=== PATIENT | female | born 1970 | race African-American/Black ===

== ENCOUNTER → 2016-10-13 | Outpatient (CLI) | payer MEDICARE ==
[2014-06-25 13:38] VITALS: BP 146/52
[~2016-10-13] MED LIST: ACET650T26 PO; CLON2TAB PO; DIPH25CA58 PO; ESOM20CA PO; GLIP5TAB10 PO; HYDR1TAB12 PO; HYDR50TA6 PO; INSU100V SQ; LEVO250T25 PO; METF10002 PO; METO100T5 PO; ONDA8TAB12 PO; SIMV10TA PO
--- NOTE | 2016-10-13 09:58 | RAD ---
Chest, 2 views, 10/13/2016: History: Dyspnea for one week Comparison is made to a study from 08/12/2014. The heart size and pulmonary vascularity are normal. No pulmonary infiltrates are seen. There is no evidence of pleural fluid. IMPRESSION: No acute cardiopulmonary abnormality is detected.
== END | disposition home or self-care (01) ==
LOC: DXRADRC 09:03
PROVIDERS: ATTEND Physician Assistant
DX: R06.00 Dyspnea, unspecified (principal)
CPT/HCPCS: 71020

== ENCOUNTER → 2016-10-19 | Outpatient (CLI) | payer MEDICARE ==
[2014-06-25 13:38] VITALS: BP 146/52
--- NOTE | 2016-10-19 14:03 | RAD ---
Renal ultrasound, 10/19/2016: History: Chronic kidney disease The right kidney measures 10.1 cm in length while the left kidney measures 10.5 cm. Two small cysts are present in the left kidney. The largest of these lies in the lower pole and measures 2 cm. The renal parenchymal echogenicity is otherwise within normal limits. There is minimal bilateral renal cortical scarring. There is no evidence of hydronephrosis. The bladder is is not well distended and poorly defined. IMPRESSION: 1. Mild bilateral renal cortical scarring. 2. Small left renal cyst. 3. No evidence of renal obstruction.
== END | disposition home or self-care (01) ==
LOC: US 13:05
PROVIDERS: ATTEND Internal Medicine Nephrology
DX: N18.4 Chronic kidney disease, stage 4 (severe) (principal); N28.89 Other specified disorders of kidney and ureter
CPT/HCPCS: 76770

== ENCOUNTER → 2018-03-06 | Outpatient (CLI) | payer MEDICARE ==
[2014-06-25 13:38] VITALS: BP 146/52
[~2018-03-06] MED LIST changes: -METF10002 PO; +METF10003 PO
--- NOTE | 2018-03-07 09:17 | RAD ---
Bone densitometry scan, 03/06/2018: History: Ovarian failure, osteoporosis screening The lumbar spine and right hip were examined utilizing a DEXA technique. The bone mineral density in the lumbar spine as measured from the L1-L4 levels is 1.56 g/sq cm. This yields a T score of 3.2 which is in the normal range. The total T score at the right hip is 0.2 which is also in the normal range. IMPRESSION: Normal bone mineral density measurements.
== END | disposition home or self-care (01) ==
LOC: DXRAD 09:44
PROVIDERS: ATTEND Physician Assistant
DX: Z13.820 Encounter for screening for osteoporosis (principal); I12.9 Hypertensive chronic kidney disease with stage 1 through stage 4 chronic kidney disease, or unspecified chronic kidney disease; E11.22 Type 2 diabetes mellitus with diabetic chronic kidney disease; N18.4 Chronic kidney disease, stage 4 (severe); E55.9 Vitamin D deficiency, unspecified; Z86.73 Personal history of transient ischemic attack (TIA), and cerebral infarction without residual deficits; Z86.2 Personal history of diseases of the blood and blood-forming organs and certain disorders involving the immune mechanism
CPT/HCPCS: 77080

== ENCOUNTER → 2018-03-06 | Outpatient (CLI) | payer MEDICARE ==
[2014-06-25 13:38] VITALS: BP 146/52
--- NOTE | 2018-03-06 10:38 | RAD ---
Pelvis with right hip, 3 views, 03/06/2018: HISTORY: Hip pain No fracture or dislocation is identified. The hip joints are fairly well-maintained with only minimal marginal spurring. Extensive arterial calcifications are present. IMPRESSION: 1. Mild spurring at both hip joints. 2. No acute bony abnormality is detected. Electronically signed by: Tony Harris MD (03/06/2018 10:34 AM) [facility]
== END | disposition home or self-care (01) ==
LOC: DXRAD 09:47
PROVIDERS: ATTEND General Practice
DX: M76.892 Other specified enthesopathies of left lower limb, excluding foot (principal); M76.891 Other specified enthesopathies of right lower limb, excluding foot; E55.9 Vitamin D deficiency, unspecified; I12.9 Hypertensive chronic kidney disease with stage 1 through stage 4 chronic kidney disease, or unspecified chronic kidney disease; E11.22 Type 2 diabetes mellitus with diabetic chronic kidney disease; N18.4 Chronic kidney disease, stage 4 (severe); Z86.73 Personal history of transient ischemic attack (TIA), and cerebral infarction without residual deficits; Z86.2 Personal history of diseases of the blood and blood-forming organs and certain disorders involving the immune mechanism
CPT/HCPCS: 73521

== ENCOUNTER → 2018-12-06 | Outpatient (CLI) | payer MEDICARE ==
[2014-06-25 13:38] VITALS: BP 146/52
[~2018-12-06] MED LIST changes: -HYDR1TAB12 PO; +HYDR1TAB13 PO; -METF10003 PO; +METF10007 PO
--- NOTE | 2018-12-06 17:01 | RAD ---
EXAM: Chest, 2 views. HISTORY: Productive cough. COMPARISON: 03/06/2018 FINDINGS: 2 views of the chest are obtained. There is no infiltrate, pleural effusion or pneumothorax. The heart is normal in size. There is a suspected small hiatal hernia. IMPRESSION: No acute pulmonary finding. Electronically signed by: Fallon Medina MD (12/06/2018 4:58 PM) [facility]
== END | disposition home or self-care (01) ==
LOC: PMG 16:13
PROVIDERS: ATTEND Registered Nurse
DX: R05 Cough (principal)
CPT/HCPCS: 71046

== ENCOUNTER → 2019-04-04 | Outpatient (CLI) | payer MEDICARE ==
[2014-06-25 13:38] VITALS: BP 146/52
--- NOTE | 2019-04-04 18:22 | RAD ---
AP pelvis with bilateral hips HISTORY: Hip pain. COMPARISON: 03/06/2018. FINDINGS: No evidence of acute fracture. No aggressive bone destruction. Joint spaces are intact. Small pelvic calcifications are identified compatible with phleboliths. IMPRESSION: No acute radiographic findings. Electronically signed by: Brayan Shankar MD (04/04/2019 6:19 PM) [id number]
== END | disposition home or self-care (01) ==
LOC: PMG 14:32
PROVIDERS: ATTEND Physician Assistant
DX: M25.552 Pain in left hip (principal); M25.551 Pain in right hip
CPT/HCPCS: 73521

== ENCOUNTER → 2020-02-05 | Outpatient (CLI) | payer MEDICARE, OTHER ==
[2014-06-25 13:38] VITALS: BP 146/52
--- NOTE | 2020-02-18 11:33 | RAD ---
EXAM: Nuclear gastric emptying scan. HISTORY: Nausea and vomiting. Reflux. COMPARISON: None. TECHNIQUE: Serial static images were obtained over the stomach following oral administration of 2 mCi of 99m-Tc sulfur colloid. FINDINGS: The stomach empties into the small bowel without evidence of reflux in the area of the esophagus. The estimated time for half emptying of gastric contents, i.e. 'gastric emptying time' is 51 minutes (normal is 66 +/- 22 minutes). There is 44 percent retained tracer activity within stomach at one hour, 16 percent retained tracer activity within the stomach at 2 hours and 1 percent retained tracer activity within stomach at 3 hours. IMPRESSION: Normal gastric emptying scan. Electronically signed by: Fallon Medina MD (02/18/2020 11:30 AM) [id number]
== END | disposition home or self-care (01) ==
LOC: NM 08:21
PROVIDERS: ATTEND Internal Medicine Gastroenterology
DX: R11.2 Nausea with vomiting, unspecified (principal)
CPT/HCPCS: 78264; A9541

== ENCOUNTER 2020-02-09 14:47 | Emergency (ER) | payer MEDICARE, OTHER ==
[~2020-02-09] VITALS: Ht 154.9 cm; Wt 69.2 kg
[2020-02-09 14:47] VITALS: BP 152/82
--- NOTE | 2020-02-09 15:25 | PHYS DOC ---
Past History Past Medical History: Anemia, Anxiety, Diabetes, Hypertension, Renal Disease, Other Past Surgical History: No Surgical History Smoking: Non-smoker Alcohol Use: None Drug Use: None General Adult EDM: Chief Complaint: URINARY problem HPI: HPI: Patient is a 50-year-old female with stage III kidney disease, presented to ER today with scanty urination. Patient says she woke up this morning had a good urination, then about 3 hours ago when she had the urge to urinate, not much coming out. Patient has some pain with urination. Patient denies any fever, no cough, no nausea, no vomiting, no abdominal pain. Review of Systems: Review of Systems: Constitutional: Denies fever or chills Eyes: Denies change in visual acuity HENT: Denies nasal congestion or sore throat Respiratory: Denies cough or shortness of breath Cardiovascular: Denies chest pain or edema GI: Denies abdominal pain, nausea, vomiting, bloody stools or diarrhea : Positive for dysuria Musculoskeletal: Denies back pain or joint pain Integument: Denies rash Neurologic: Denies headache, focal weakness or sensory changes Endocrine: Denies polyuria or polydipsia Lymphatic: Denies swollen glands Psychiatric: Denies depression or anxiety Heart Score: Risk Factors: Risk Factors: DM, Current or recent (<one month) smoker, HTN, HLP, family history of CAD, obesity. Risk Scores: Score 0 - 3: 2.5% MACE over next 6 weeks - Discharge Home Score 4 - 6: 20.3% MACE over next 6 weeks - Admit for Clinical Observation Score 7 - 10: 72.7% MACE over next 6 weeks - Early Invasive Strategies Allergies: Allergies: Allergies Coded Allergies Type Severity Reaction Last Updated Verified metoclopramide HCl Allergy Severe Anaphylaxis 08/10/13 Yes Sulfa (Sulfonamide Antibiotics) Allergy Intermediate rash 08/10/13 Yes latex Allergy Intermediate rash 08/10/13 Yes Physical Exam: PE: Constitutional: Well developed, well nourished, no acute distress, non-toxic appearance. [] HENT: Normocephalic, atraumatic, bilateral external ears normal, oropharynx moist, no oral exudates, nose normal. [] Eyes: PERRLA, EOMI, conjunctiva normal, no discharge. [] Neck: Normal range of motion, no tenderness, supple, no stridor. [] Cardiovascular:Heart rate regular rhythm, no murmur [] Lungs & Thorax: Bilateral breath sounds clear to auscultation [] Abdomen: Bowel sounds normal, soft, no tenderness, no masses, no pulsatile masses. [] Skin: Warm, dry, no erythema, no rash. [] Back: No tenderness, no CVA tenderness. [] Extremities: No tenderness, no cyanosis, no clubbing, ROM intact, no edema. [] Neurologic: Alert and oriented X 3, normal motor function, normal sensory function, no focal deficits noted. [] Psychologic: Affect normal, judgement normal, mood normal. [] Current Patient Data: Labs: Laboratory Tests Test 02/09/20 15:00 Urine Collection Type Unknown Urine Color Yellow Urine Clarity Turbid Urine pH 5.5 Urine Specific [place] 1.020 Urine Protein 100 mg/dl Urine Glucose (UA) Neg mg/dL Urine Ketones (Stick) Neg mg/dL Urine Blood Trace Urine Nitrite Neg Urine Bilirubin Neg Urine Urobilinogen Dipstick 0.2 mg/dL Urine Leukocyte Esterase Neg Urine RBC 3-5 /HPF Urine WBC 1-4 /HPF Urine Squamous Epithelial Cells Many /LPF Urine Bacteria Mod /HPF Urine Mucus Slight /LPF EKG: EKG: [] Radiology/Procedures: Radiology/Procedures: [] Course & Med Decision Making: Course & Med Decision Making Pertinent Labs and Imaging studies reviewed. (See chart for details) Patient was able to urinate in the ER, she did not have any abdominal pain, no fever, her urine did not show any evidence of infection. Patient will be discharged home, she will need to follow-up with her family doctor for reevaluation next week. Martina Disclaimer: Martina Disclaimer: This electronic medical record was generated, in whole or in part, using a voice recognition dictation system. Departure Departure: Impression: Primary Impression: Decreased urination Disposition: HOME/RESIDENCE PRIOR TO ADM Condition: STABLE Referrals: HIRAM GARCIA (PCP) please follow up with your doctor on Monday Patient Instructions: Dysuria Justification of Admission: Justification of Admission: Justification of Admission Dx: N/A SUSANA POTTS DO Feb 09, 2020 15:25
[2020-02-09 15:49] LABS: BILIRUBIN,URINE NEG (NEG); CLARITY,URINE TURBID; COLOR,URINE YELLOW; GLUCOSE,URINE NEG (NEG); NITRITE,URINE NEG (NEG); UROBILINOGEN,URINE 0.2 mg/dL (0.2 mg/dL)
[2020-02-09 15:50] LABS: BACTERIA,URINE MOD /HPF (0-FEW); SQUAMOUS EPITHELIAL CELL,UR MANY /LPF
== END 2020-02-09 16:50 | disposition home or self-care (01) ==
LOC: ER 14:47
DX: R39.198 Other difficulties with micturition (principal); R39.15 Urgency of urination; R30.0 Dysuria; E11.22 Type 2 diabetes mellitus with diabetic chronic kidney disease; F41.9 Anxiety disorder, unspecified; I12.9 Hypertensive chronic kidney disease with stage 1 through stage 4 chronic kidney disease, or unspecified chronic kidney disease; N18.3 Chronic kidney disease, stage 3 (moderate); Z86.2 Personal history of diseases of the blood and blood-forming organs and certain disorders involving the immune mechanism; Z88.2 Allergy status to sulfonamides; Z91.040 Latex allergy status; Z88.8 Allergy status to other drugs, medicaments and biological substances
CPT/HCPCS: 81001; 99283

== ENCOUNTER 2021-04-12 13:59 | Emergency (ER) | payer MEDICARE, OTHER ==
[~2021-04-12] VITALS: Ht 154.9 cm; Wt 66.6 kg
[~2021-04-12 13:59] MED LIST changes: -HYDR50TA6 PO; +HYDR50TA9 PO
[2021-04-12 14:05] VITALS: BP 124/81
--- NOTE | 2021-04-12 14:37 | RAD ---
EXAM: Left hand and thumb, 3 views; left wrist, 3 views. HISTORY: Fall. Trauma. COMPARISON: None. FINDINGS: A frontal view of the left hand, 2 views left thumb and 3 views of left wrist are obtained. There is no fracture, dislocation or subluxation. There is a tiny ossicle or osseous excrescence at the base of the first metacarpal which is likely due to a spur. There are vascular calcifications. IMPRESSION: No acute osseous finding. Suspected tiny spur at the base of the first metacarpal. Electronically signed by: Fallon Medina MD (04/12/2021 2:35 PM) [id number]
--- NOTE | 2021-04-12 14:58 | PHYS DOC ---
Past History Past Medical History: Anemia, Anxiety, Diabetes, Hypertension, Renal Disease, UTI, Other (GENESIS PALACIOS APRN) Past Surgical History: Hysterectomy (GENESIS PALACIOS APRN) Smoking: Non-smoker Alcohol Use: None Drug Use: None (GENSEIS PALACIOS APRN) General Adult EDM: Chief Complaint: THUMB HPI: HPI: Patient is a 51-year-old female who presents with left thumb pain after she tripped and fell at work. Patient denies taking anything for pain prior to arrival. Patient has full range of motion. Radial pulses intact. (GENESIS PALACIOS APRN) Review of Systems: Review of Systems: Constitutional: Denies fever or chills Eyes: Denies change in visual acuity HENT: Denies nasal congestion or sore throat Respiratory: Denies cough or shortness of breath Cardiovascular: Denies chest pain or edema GI: Denies abdominal pain, nausea, vomiting, bloody stools or diarrhea : Denies dysuria Musculoskeletal: Right thumb and wrist pain Integument: Denies rash Neurologic: Denies headache, focal weakness or sensory changes Endocrine: Denies polyuria or polydipsia Lymphatic: Denies swollen glands Psychiatric: Denies depression or anxiety (GENESIS PALACIOS APRN) Allergies: Allergies: Allergies Coded Allergies Type Severity Reaction Last Updated Verified metoclopramide HCl Allergy Severe Anaphylaxis 08/10/13 Yes Sulfa (Sulfonamide Antibiotics) Allergy Intermediate rash 08/10/13 Yes latex Allergy Intermediate rash 08/10/13 Yes (GENESIS PALACIOS APRN) Physical Exam: PE: Constitutional: Well developed, well nourished, no acute distress, non-toxic appearance. [] HENT: Normocephalic, atraumatic, bilateral external ears normal, oropharynx moist, no oral exudates, nose normal. [] Eyes: PERRLA, EOMI, conjunctiva normal, no discharge. [] Neck: Normal range of motion, no tenderness, supple, no stridor. [] Cardiovascular:Heart rate regular rhythm, no murmur [] Lungs & Thorax: Bilateral breath sounds clear to auscultation [] Abdomen: Bowel sounds normal, soft, no tenderness, no masses, no pulsatile masses. [] Skin: Warm, dry, no erythema, no rash. [] Back: No tenderness, no CVA tenderness. [] Extremities: Right thumb tenderness, no cyanosis, no clubbing, ROM intact, no edema. [] Neurologic: Alert and oriented X 3, normal motor function, normal sensory function, no focal deficits noted. [] Psychologic: Affect normal, judgement normal, mood normal. [] (GENESIS PALACIOS APRN) Current Patient Data: Vital Signs: Vital Signs Date Time Temp Pulse Resp B/P (MAP) Pulse Ox O2 Delivery O2 Flow Rate FiO2 04/12/21 14:05 98.0 96 16 124/81 (95) 100 Room Air (GENESIS PALACIOS APRN) EKG: EKG: [] (GENESIS PALACIOS APRN) Radiology/Procedures: Radiology/Procedures: []EXAM: Left hand and thumb, 3 views; left wrist, 3 views. HISTORY: Fall. Trauma. COMPARISON: None. FINDINGS: A frontal view of the left hand, 2 views left thumb and 3 views of left wrist are obtained. There is no fracture, dislocation or subluxation. There is a tiny ossicle or osseous excrescence at the base of the first metacarpal which is likely due to a spur. There are vascular calcifications. IMPRESSION: No acute osseous finding. Suspected tiny spur at the base of the first metacarpal. Electronically signed by: Fallon Medina MD (04/12/2021 2:35 PM) [id number] (GENESIS PALACIOS APRN) Heart Score: C/O Chest Pain: No Risk Factors: Risk Factors: DM, Current or recent (<one month) smoker, HTN, HLP, family history of CAD, obesity. Risk Scores: Score 0 - 3: 2.5% MACE over next 6 weeks - Discharge Home Score 4 - 6: 20.3% MACE over next 6 weeks - Admit for Clinical Observation Score 7 - 10: 72.7% MACE over next 6 weeks - Early Invasive Strategies (GENESIS PALACIOS APRN) Course & Med Decision Making: Course & Med Decision Making Pertinent Labs and Imaging studies reviewed. (See chart for details) [] 51-year-old female presents with left thumb pain after she tripped and fell at work. Patient denies hitting her head or loss of consciousness. Patient is reporting pain 6/10. Radial pulses are intact. Range of motion intact. Patient denying needing thing for pain at this time. Wrist and hand x-ray ordered to rule out fracture. Wrist and hand x-ray are negative for fracture. Informed patient of results. Advised patient to take ibuprofen and Tylenol at home for pain. Rice instructions given (GENESIS PALACIOS APRN) Course & Med Decision Making I was the Attending physician on the above date of service of this patient. This patient was evaluated, examined, treated, and dispositioned from the emergency department by the mid-level practitioner. Although I was working at the time , no assistance was requested. Electronically signed, Nikkie Valerio DO (NIKKIE VALERIO DO) Martina Disclaimer: Martina Disclaimer: This electronic medical record was generated, in whole or in part, using a voice recognition dictation system. (GENESIS PALACIOS APRN) Departure Departure: Impression: Primary Impression: Fall Qualified Codes: W19.XXXA - Unspecified fall, initial encounter Additional Impression: Hand sprain Qualified Codes: S63.92XA - Sprain of unspecified part of left wrist and hand, initial encounter Disposition: HOME / SELF CARE / HOMELESS Condition: STABLE Referrals: HIRAM GARCIA (PCP) Patient Instructions: LETTY - Routine Care for Injuries, [id number] Additional Instructions: You were seen in the emergency room after falling at work. X-ray was performed on your wrist and hand which was negative for fracture rest, use ice to the area, elevate to help with swelling and pain. Ibuprofen and Tylenol at home for discomfort. If pain continues you may need a repeat image to rule out fracture. Please follow-up with your PCP for further management. EMERGENCY DEPARTMENT GENERAL DISCHARGE INSTRUCTIONS Thank you for coming to [facility] (ED) today and trusting us with you care. We trust that you had a positivie experience in our Emergency Department. If you wish to speak to the department management, you may call the director at [phone]. YOUR FOLLOW UP INSTRUCTIONS ARE FOLLOWS: 1. Do you have a private Doctor? If you do not have a private doctor, please ask for a resource list of physicians or clinics that may be able to assist you with follow up care. 2. The Emergency Physician has interpreted your x-rays. The X-Ray specialist will also review them. If there is a change in the findings, you will be notified in 48 hours when at all possible. 3. A lab test or culture has been done, your results will be reviewed and you will be notified if you need a change in treatment. ADDITIONAL INSTRUCTIONS AND INFORMATION: 1. Your care today has been supervised by a physician who is specially trained in emergency care. Many problems require more than one evaluation for a complete diagnosis and treatment. We recommend that you schedule your follow up appointment as recommended to ensure complete treatment of you illness or injury. If you are unable to obtain follow up care and continue to have a problem, or if your condition worsens, we recommend that you return to the ED. 2. We are not able to safely determine your condition over the phone nor are we able to give sound medical advice over the phone. For these safety reasons, if you call for medical advice we will ask you to come to the ED for further evaluation. 3. If you have any questions regarding these discharge instructions please call the ED at [phone]. SAFETY INFORMATION: In the interest of safety, wellness, and injury prevention; we encourage you to wear your sealbelt, if you smoke; quite smoking, and we encourage family to use a protective helmet for bicycling and other sporting events that present an increased risk for head injury. IF YOUR SYMPTOMS WORSEN OR NEW SYMPTOMS DEVELOP, OR YOU HAVE CONCERNS ABOUT YOUR CONDITION; OR IF YOUR CONDITION WORSENS WHILE YOU ARE WAITING FOR YOUR FOLLOW UP APPOINTMENT; EITHER CONTACT YOUR PRIMARY CARE DOCTOR, THE PHYSICIAN WHOSE NAME AND NUMBER YOU WERE GIVEN, OR RETURN TO THE ED IMMEDIATELY. GENESIS PALACIOS APRN Apr 12, 2021 14:58 NIKKIE VALERIO DO Apr 13, 2021 06:26
== END 2021-04-12 15:16 | disposition home or self-care (01) ==
LOC: ER 13:59
DX: S63.92XA Sprain of unspecified part of left wrist and hand, initial encounter (principal); E11.9 Type 2 diabetes mellitus without complications; I10 Essential (primary) hypertension; Z87.440 Personal history of urinary (tract) infections; Z86.2 Personal history of diseases of the blood and blood-forming organs and certain disorders involving the immune mechanism; Z88.2 Allergy status to sulfonamides; Z91.040 Latex allergy status; Z88.8 Allergy status to other drugs, medicaments and biological substances; W01.0XXA Fall on same level from slipping, tripping and stumbling without subsequent striking against object, initial encounter; Y93.89 Activity, other specified; Y92.89 Other specified places as the place of occurrence of the external cause; Y99.8 Other external cause status
CPT/HCPCS: 73110; 73140; 99284

== ENCOUNTER → 2021-06-08 | Outpatient (CLI) | payer MEDICARE, OTHER ==
[~2021-06-08] MED LIST changes: +TRAM50TA PO
--- NOTE | 2021-06-08 11:32 | RAD ---
EXAM: 3 views of the left foot DATE: 06/08/2021 10:37 AM INDICATION: Reason: LEFT PLANTAR FOOT PAIN / Spl. Instructions: / History: COMPARISON: No Prior FINDINGS: No acute fracture or dislocation. Joint spaces are preserved without significant degenerative/prolife rative change. No significant soft tissue swelling. Atherosclerotic vascular calcifications are seen. Small plantar Calcaneal enthesophyte. IMPRESSION: 1. No acute fracture or dislocation. 2. Small plantar calcaneal enthesophyte. 3. Vascular calcifications are seen. Electronically signed by: Casey Treadwell MD (06/08/2021 11:30 AM) [id number]
== END ==
LOC: RAD 10:12
PROVIDERS: ATTEND Nurse Practitioner Family
DX: M77.32 Calcaneal spur, left foot (principal); M25.872 Other specified joint disorders, left ankle and foot; M79.672 Pain in left foot
CPT/HCPCS: 73630

== ENCOUNTER 2021-06-12 14:50 | Emergency (ER) | payer MEDICARE, OTHER ==
[~2021-06-12] VITALS: Ht 154.9 cm; Wt 67.4 kg
[~2021-06-12 14:50] MED LIST changes: -TRAM50TA PO
[2021-06-12 15:05] VITALS: BP 141/80
[2021-06-12] MEDS ORDERED: TRAM50TA PO (16:03)
--- NOTE | 2021-06-12 16:04 | PHYS DOC ---
Past History Past Medical History: Anemia, Anxiety, Diabetes, Hypertension, Renal Disease, UTI, Other (VALERIY RUSH RING STAMPER) Past Surgical History: , Hysterectomy (VALERIY RUSH RING STAMPER) Smoking: Non-smoker Alcohol Use: None Drug Use: None (VALERIY RUSH APRN) Adult General Chief Complaint Chief Complaint: FOOT INJURY PAIN HPI HPI Patient is a 51 yr old female with history of diabetes type 2, hypertension, kidney disease, anxiety, who presents to the ED today complaining of 9 out of 10 sharp intermittent left foot pain, symptoms have been going on for 4 to 5 days. Patient states she works in a [place] and does not remember injuring herse lf, she states she was walking when pain suddenly began. She states the pain is worse on weightbearing. Patient states she followed up with urgent care 4 days ago, she states they did x-rays of the left foot and she was told there was nothing wrong. 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 (VALERIY RUSH RING STAMPER) Allergies Allergies Allergies Coded Allergies Type Severity Reaction Last Updated Verified metoclopramide HCl Allergy Severe Anaphylaxis 08/10/13 Yes Sulfa (Sulfonamide Antibiotics) Allergy Intermediate rash 08/10/13 Yes latex Allergy Intermediate rash 08/10/13 Yes (VALERIY RUSH RING STAMPER) Physical Exam Physical Exam Constitutional: Well developed, well nourished, no acute distress, non-toxic appearance. [] Skin: Warm, dry, no erythema, no rash. [] Back: No tenderness, no CVA tenderness. [] Extremities: Left foot with no obvious deformity, the ankle of the foot with bruising. Tenderness on palpation of the arch of the foot as well as the calcaneus. Full range of motion to the left foot and toes. No navicular bone tenderness or tenderness on the base of the fifth metatarsal. +2 left pedal pulse. Cap refill less than 2 seconds to left toes Neurologic: Alert and oriented X 3, normal motor function, normal sensory function, no focal deficits noted. [] Psychologic: Affect normal, judgement normal, mood normal. [] (VALERIY RUSH APRN) Current Patient Data Vital Signs Vital Signs Date Time Temp Pulse Resp B/P (MAP) Pulse Ox O2 Delivery O2 Flow Rate FiO2 06/12/21 15:05 97.7 96 20 141/80 (100) 100 Room Air (VALERIY RUSH APRN) EKG EKG [] (VALERIY RUSH APRN) Radiology/Procedures Radiology/Procedures [] (VALERIY RUSH APRN) Heart Score C/O Chest Pain: N/A Risk Factors: Risk Factors: DM, Current or recent (<one month) smoker, HTN, HLP, family history of CAD, obesity. Risk Scores: Risk Factors: DM, Current or recent (<one month) smoker, HTN, HLP, family history of CAD, obesity. (VALERIY RUSH APRN) Course & Med Decision Making Course & Med Decision Making Pertinent Labs and Imaging studies reviewed. (See chart for details) This is a 51-year-old female patient presenting to the ED today with left foot pain that began 4 to 5 days ago, no known injury. Had x-rays done 4 days ago at urgent care and there is nothing acute on the x-ray, was noted to have calcaneus osteophytes. Recommended putting her shoes to support the calcaneus. Recommend ice and Advil. She requested a note for work which was provided. 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 Given tramadol for pain. (VALERIY RUSH RING STAMPER) Course & Med Decision Making I was the Attending physician on the above date of service of this patient. This patient was evaluated, examined, treated, and dispositioned from the emergency department by the mid-level practitioner. Although I was working at the time , no assistance was requested. Electronically signed, Nikkie Valerio DO (NIKKIE VALERIO DO) Martina Disclaimer Dragon Disclaimer This electronic medical record was generated, in whole or in part, using a voice recognition dictation system. (VALERIY RUSH RING STAMPER) Departure Departure: Impression: Primary Impression: Left foot pain Disposition: HOME / SELF CARE / HOMELESS Condition: STABLE Referrals: HIRAM GARCIA (PCP) Follow-up with your professor of historical theology as soon as you can Patient Instructions: Musculoskeletal Pain Additional Instructions: You were evaluated in the emergency room for left foot pain. We recommend you follow-up with your professor of historical theology as soon as you can. Take the prescribed pain medicine as needed for pain. Try to ice and elevate the extremity. Consider padding the inside of your shoes e.g using supporting insoles like Dr. Nielsen's to protect/support your calcaneus. Scripts Tramadol Hcl (TRAMADOL HCL) 50 Mg Tablet 50 MG PO PRN Q6HRS PRN for PAIN, #20 TAB Prov: VALERIY RUSH APRN 06/12/21 VALERIY RUSH APRN Jun 12, 2021 16:04 NIKKIE VALERIO DO Jun 13, 2021 06:25
== END 2021-06-12 16:20 | disposition home or self-care (01) ==
LOC: ER 14:50
DX: S90.32XA Contusion of left foot, initial encounter (principal); E11.22 Type 2 diabetes mellitus with diabetic chronic kidney disease; I12.9 Hypertensive chronic kidney disease with stage 1 through stage 4 chronic kidney disease, or unspecified chronic kidney disease; N18.9 Chronic kidney disease, unspecified; Z86.2 Personal history of diseases of the blood and blood-forming organs and certain disorders involving the immune mechanism; Z87.440 Personal history of urinary (tract) infections; Z88.2 Allergy status to sulfonamides; Z88.8 Allergy status to other drugs, medicaments and biological substances; Z91.040 Latex allergy status; X58.XXXA Exposure to other specified factors, initial encounter; Y93.89 Activity, other specified; Y92.89 Other specified places as the place of occurrence of the external cause; Y99.8 Other external cause status
CPT/HCPCS: 99283

== ENCOUNTER → 2021-06-16 | Day surgery (SDC) | payer MEDICARE, OTHER ==
[~2021-06-16] MED LIST changes: +TRAM50TA PO
[2021-06-16 12:32] VITALS: BP 126/75
== END | disposition home or self-care (01) ==
LOC: SURG 12:22
PROVIDERS: ATTEND Anesthesiology
DX: M79.672 Pain in left foot (principal); M54.16 Radiculopathy, lumbar region; I13.0 Hypertensive heart and chronic kidney disease with heart failure and stage 1 through stage 4 chronic kidney disease, or unspecified chronic kidney disease; E11.22 Type 2 diabetes mellitus with diabetic chronic kidney disease; I50.9 Heart failure, unspecified; N18.9 Chronic kidney disease, unspecified; K21.9 Gastro-esophageal reflux disease without esophagitis; M19.90 Unspecified osteoarthritis, unspecified site; F41.9 Anxiety disorder, unspecified; Z86.73 Personal history of transient ischemic attack (TIA), and cerebral infarction without residual deficits; Z79.4 Long term (current) use of insulin; Z79.899 Other long term (current) drug therapy; Z98.890 Other specified postprocedural states; Z91.040 Latex allergy status; Z88.2 Allergy status to sulfonamides; Z82.49 Family history of ischemic heart disease and other diseases of the circulatory system; Z83.3 Family history of diabetes mellitus
CPT/HCPCS: 99204; G0463

== ENCOUNTER → 2021-08-04 | Day surgery (SDC) | payer OTHER ==
[~2021-08-04] MED LIST changes: +BUPIVACAINE MPF 0.25% 10 ML VIAL. ONE; +DEXAMETHASONE SOD PHOS 10 MG/ML VIAL. ONE
[2021-08-04 15:05] VITALS: BP 125/79
== END | disposition home or self-care (01) ==
LOC: SURG 14:09
PROVIDERS: ATTEND Anesthesiology
DX: M25.572 Pain in left ankle and joints of left foot (principal); M25.571 Pain in right ankle and joints of right foot; M54.16 Radiculopathy, lumbar region; I13.0 Hypertensive heart and chronic kidney disease with heart failure and stage 1 through stage 4 chronic kidney disease, or unspecified chronic kidney disease; I50.9 Heart failure, unspecified; E11.22 Type 2 diabetes mellitus with diabetic chronic kidney disease; N18.9 Chronic kidney disease, unspecified; K21.9 Gastro-esophageal reflux disease without esophagitis; D64.9 Anemia, unspecified; F41.9 Anxiety disorder, unspecified; Z86.73 Personal history of transient ischemic attack (TIA), and cerebral infarction without residual deficits; Z79.4 Long term (current) use of insulin; Z79.899 Other long term (current) drug therapy; Z91.040 Latex allergy status; Z88.8 Allergy status to other drugs, medicaments and biological substances; Z98.890 Other specified postprocedural states; Z82.49 Family history of ischemic heart disease and other diseases of the circulatory system
CPT/HCPCS: 64450; A4657; A4930; J1100; J3490

== ENCOUNTER → 2021-09-30 | Outpatient (CLI) | payer MEDICARE, OTHER ==
[2021-08-04 15:05] VITALS: BP 125/79
[~2021-09-30] MED LIST changes: -BUPIVACAINE MPF 0.25% 10 ML VIAL. ONE; -DEXAMETHASONE SOD PHOS 10 MG/ML VIAL. ONE
--- NOTE | 2021-10-01 10:45 | RAD ---
INDICATION: 51 years of age asymptomatic female patient presents for screening mammography. History o f benign right breast biopsy. No personal or family history of breast cancer. TECHNIQUE: Full field craniocaudal and mediolateral oblique images of both breasts were obtained usi ng digital technique with tomosynthesis and also analyzed with computer-aided detection software. COMPARISON: Prior mammographic imaging dating back to baseline mammogram. BREAST COMPOSITION: Category A: The breasts are predominantly fatty. FINDINGS: Right breast: There are 2 focal asymmetries in the upper outer quadrant, middle posterior depth. Thes e are appreciated on the CC projection image 38/57 and 23/57 and MLO 3-D image 26/63. There are a few benign-appearing calcifications interspersed in the upper outer quadrant. There is no suspicious arc hitectural distortion. Left breast: Asymmetry in the superior breast, anterior depth appreciated on the MLO projection on 3- D image 34/57. This is not definitely visualized on the CC projection. No suspicious calcifications o r architectural distortion. IMPRESSION: 1. Indeterminate right breast focal asymmetries. Further evaluation with diagnostic right breast mamm ogram preferably with 3-D spot compression. This may be followed up with targeted right breast ultras ound. 2. Indeterminate left breast asymmetry appreciated on the MLO projection. Further evaluation with zulema gnostic left breast mammogram preferably with 3-D spot compression. This may also be followed up with targeted left breast ultrasound. RECOMMENDATION: The patient will be contacted to return for additional imaging and a supplemental rep ort will follow. BIRADS 0: INCOMPLETE - NEED ADDITIONAL IMAGING EVALUATION AND/OR PRIOR MAMMOGRAMS FOR COMPARISON. This study was interpreted with the benefit of Computerized Aided Detection (CAD). Patient information is entered into the reminder system with a target due date for the next screening mammogram. Mammography is the most sensitive method for finding small breast cancers, but it does not detect the m all and is not a substitute for careful clinical examination. A negative mammogram does not negate a clinically suspicious finding and should not result in delay in biopsying a clinically suspicious a bnormality. "Our facility is accredited by the [employer] Mammography Program." Electronically signed by: Carlos Finley DO (10/01/2021 10:42 AM) [id number]
== END ==
LOC: MAMMO 10:21
PROVIDERS: ATTEND Physician Assistant
DX: Z12.31 Encounter for screening mammogram for malignant neoplasm of breast (principal)
CPT/HCPCS: 77063; 77067

== ENCOUNTER → 2021-10-01 | Outpatient (CLI) | payer MEDICARE, OTHER ==
[2021-08-04 15:05] VITALS: BP 125/79
--- NOTE | 2021-10-01 17:24 | RAD ---
EXAM: 3 views left foot DATE: 10/01/2021 4:23 PM INDICATION: Reason: FOLLOW UP FRACTURE / Spl. Instructions: / History: . COMPARISON: No Prior FINDINGS/ IMPRESSION: Oblique fracture of the midshaft second metatarsal is mildly displaced with prominent/bulky associate d callus formation. Vascular calcifications are seen. Electronically signed by: Casey Treadwell MD (10/01/2021 5:22 PM) [id number]
== END ==
LOC: RAD 16:14
PROVIDERS: ATTEND Podiatrist
DX: S92.322A Displaced fracture of second metatarsal bone, left foot, initial encounter for closed fracture (principal); X58.XXXA Exposure to other specified factors, initial encounter; Y93.89 Activity, other specified; Y92.89 Other specified places as the place of occurrence of the external cause; Y99.8 Other external cause status
CPT/HCPCS: 73630

== ENCOUNTER → 2021-10-21 | Outpatient (CLI) | payer MEDICARE, OTHER ==
[2021-08-04 15:05] VITALS: BP 125/79
--- NOTE | 2021-10-21 11:03 | RAD ---
PROCEDURE: US BREAST LTD STACY, MG DIAGNOSTIC BILAT HISTORY: The patient is 51 years old and is seen for Reason: BILAT CALLBACK / Spl. Instructions: / H istory: . COMPARISON: September 30, 2021 TECHNIQUE: Compression views of bilateral breasts. Bilateral breast ultrasound. DENSITY: There are scattered fibroglandular densities. FINDINGS: Right mammogram: Focal asymmetries within the right upper outer breast are less apparent on spot comp ression views. No suspicious microcalcification or architectural distortion. Right ultrasound: Small intramammary lymph node within the right breast 10:00 position 11 cm from the nipple, corresponding with one of the asymmetries seen on mammogram. Left mammogram: Asymmetry within the left breast is less apparent on spot compression views. Left ultrasound: No ultrasound evidence of abnormality within the left anterior breast to correspond with mammographic finding. Intramammary lymph node within the left breast 2:00 position 14 cm from th e nipple. IMPRESSION: 1. Benign findings. No evidence of malignancy. 2. Asymmetries are less apparent on spot compression views, likely overlapping fibroglandular tissue . 3. Bilateral intramammary lymph nodes. Recommend annual screening mammograms per [employer] guidelines. She will be due in one year. BI-RADS category 2 Benign Patient entered into a reminder system for annual screening mammogram. Electronically signed by: Aravind Castillo DO (10/21/2021 11:00 AM) [id number]
== END ==
LOC: MAMMO 09:15
PROVIDERS: ATTEND Physician Assistant
DX: N63.11 Unspecified lump in the right breast, upper outer quadrant (principal); N63.21 Unspecified lump in the left breast, upper outer quadrant
CPT/HCPCS: 77066; 76642-50

== ENCOUNTER → 2021-11-19 | Outpatient (CLI) | payer MEDICARE, OTHER ==
[2021-08-04 15:05] VITALS: BP 125/79
--- NOTE | 2021-11-19 15:51 | RAD ---
EXAM: XR FOOT_LEFT 3 VIEWS 11/19/2021 2:03 PM CLINICAL INDICATION: Follow-up left foot fracture COMPARISON: Left foot radiograph 10/01/2021 TECHNIQUE: AP, oblique, and lateral views of the left foot with weightbearing FINDINGS: There is a transverse fracture of the second metatarsal midshaft. The fracture is unchange d in alignment. There is persistent fracture lucency clear bridging bone but exuberant surrounding ca llus formation. No new fracture or malalignment. Joint spaces are maintained. No focal soft tissue ab normality. IMPRESSION: Second metatarsal shaft fracture with extensive peripheral callus formation but persiste nt fracture lucency. CT may be useful if further evaluation is needed to determine the degree of osse ous bridging. Electronically signed by: Jewell Castillo MD (11/19/2021 3:49 PM) [id number]
== END ==
LOC: RAD 13:45
PROVIDERS: ATTEND Podiatrist
DX: S92.322D Displaced fracture of second metatarsal bone, left foot, subsequent encounter for fracture with routine healing (principal); L84 Corns and callosities; X58.XXXD Exposure to other specified factors, subsequent encounter
CPT/HCPCS: 73630